=== PATIENT | female | born 1940 | race Caucasian/White ===

== ENCOUNTER 2023-12-04 04:34 | Day surgery (SDC) | payer BC, OTHER ==
[2023-11-27 15:22] VITALS: BMI 22.1
[2023-12-04 11:28] VITALS: TEMP 97.3
[2023-12-04 12:12] VITALS: BP 122/63; PULSE 63; RESP 15
== END 2023-12-04 12:30 | disposition home or self-care (01) ==
LOC: JASU-ENDO 04:34
PROVIDERS: ATTEND Internal Medicine Gastroenterology
PROC: 0DBK8ZX Excision of Ascending Colon, Via Natural or Artificial Opening Endoscopic, Diagnostic (ICD-10-PCS; 2023-12-04)
PROC: 0DBL8ZX Excision of Transverse Colon, Via Natural or Artificial Opening Endoscopic, Diagnostic (ICD-10-PCS; 2023-12-04)
PROC: 0DBP8ZX Excision of Rectum, Via Natural or Artificial Opening Endoscopic, Diagnostic (ICD-10-PCS; 2023-12-04)
PROC: 0DBM8ZX Excision of Descending Colon, Via Natural or Artificial Opening Endoscopic, Diagnostic (ICD-10-PCS; 2023-12-04)
PROC: 0DBH8ZX Excision of Cecum, Via Natural or Artificial Opening Endoscopic, Diagnostic (ICD-10-PCS; 2023-12-04)
PROC: 0DB98ZX Excision of Duodenum, Via Natural or Artificial Opening Endoscopic, Diagnostic (ICD-10-PCS; 2023-12-04)
PROC: 0DB68ZX Excision of Stomach, Via Natural or Artificial Opening Endoscopic, Diagnostic (ICD-10-PCS; 2023-12-04)
PROC: 0DBK8ZX Excision of Ascending Colon, Via Natural or Artificial Opening Endoscopic, Diagnostic (ICD-10-PCS; principal; 2023-12-04 11:00)
DX: Z12.11 Encounter for screening for malignant neoplasm of colon (principal); D12.2 Benign neoplasm of ascending colon; D12.8 Benign neoplasm of rectum; K63.5 Polyp of colon; K64.8 Other hemorrhoids; K57.30 Diverticulosis of large intestine without perforation or abscess without bleeding; K29.50 Unspecified chronic gastritis without bleeding
CPT/HCPCS: 88305-TC; 88342-TC

== ENCOUNTER 2023-12-16 15:52 | Emergency (ER) | payer BC, OTHER ==
[2023-12-16 15:59] VITALS: BP 136/60; PULSE 82; RESP 18; TEMP 98.2; BMI 22.1
== END 2023-12-16 18:26 | disposition home or self-care (01) ==
LOC: JERFT 15:52
DX: R05.1 Acute cough (principal); J06.9 Acute upper respiratory infection, unspecified; R09.81 Nasal congestion; Z20.822 Contact with and (suspected) exposure to COVID-19
CPT/HCPCS: 0241U-QW; 99283-25

== ENCOUNTER 2023-12-21 15:37 | Emergency (ER) | payer BC, OTHER ==
[2023-12-21 16:22] VITALS: BP 137/59; PULSE 96; RESP 18; TEMP 99.5; BMI 22.1
[2023-12-21 17:02] LABS: HEMATOCRIT 39.9 % (32.4-45.2); HEMOGLOBIN 13.2 G/dL (10.7-15.3); MCH 30.4 pg (25.7-33.7); MCHC 33.1 g/dl (32.0-36.0); MEAN CELL VOLUME 91.9 fl (80-96); MEAN PLT VOLUME 8.4 fl (7.5-11.1); PLATELET COUNT 248.4 10^3/uL (134-434); RBC 4.34 10^6/uL (3.60-5.2); RDW 13.4 % (11.6-15.6); WHITE BLOOD COUNT 10.9 10^3/uL (4.0-10.8)
[2023-12-21 17:16] LABS: INR 1.09 (0.83-1.09); PROTHROMBIN TIME (PATIENT) 12.4 SEC (9.7-13.0)
[2023-12-21 17:19] LABS: ACTIVATED PTT 30.8 SECONDS (25.2-36.5)
[2023-12-21 17:26] LABS: ALBUMIN 3.9 g/dl (3.4-5.0); BILIRUBIN,TOTAL 0.8 mg/dl (0.2-1); CALCIUM 8.8 mg/dl (8.5-10.1); CREATININE 0.6 mg/dl (0.6-1.3); POTASSIUM 4.5 mmol/L (3.5-5.1); TOT PROT 5.9 g/dl (6.4-8.2)
[2023-12-21 17:41] LABS: PLATELET ESTIMATE ADEQUATE
[2023-12-21] MEDS ORDERED: AMOX TR/POT CLAV 875MG/125MG TABLETS (FP) ONE (18:46)
[2023-12-21] MEDS ORDERED: DOXYCYCLINE HYCLATE 100 MG CAPSULE PO ONE (18:46)
[2023-12-21] MEDS: AMOX TR/POT CLAV 875MG/125MG TABLETS (FP) PO ONE (18:57)
[2023-12-21] MEDS: DOXYCYCLINE HYCLATE 100 MG CAPSULE PO ONE (18:57)
== END 2023-12-21 19:02 | disposition home or self-care (01) ==
LOC: FER 15:37
DX: R05.9 Cough, unspecified (principal); R06.02 Shortness of breath; J34.89 Other specified disorders of nose and nasal sinuses; J18.9 Pneumonia, unspecified organism; R93.89 Abnormal findings on diagnostic imaging of other specified body structures; Z20.822 Contact with and (suspected) exposure to COVID-19
CPT/HCPCS: 0241U-QW; 36415; 71046-TC-FY; 80053; 83880; 84484; 85027; 85610; 85730; 93005; 99285-25

== ENCOUNTER 2024-05-29 18:41 | Emergency (ER) | payer BC, OTHER ==
[2024-05-29 18:46] VITALS: BP 114/83; PULSE 78; RESP 18; TEMP 98.1; BMI 21.2
[2024-05-29] MEDS ORDERED: ACETAMINOPHEN 500 MG TABLET (FP) ONE (19:39)
[2024-05-29] MEDS: ACETAMINOPHEN 500 MG TABLET (FP) PO ONE (19:41)
== END 2024-05-29 20:35 | disposition home or self-care (01) ==
LOC: FER 18:41
DX: S63.91XA Sprain of unspecified part of right wrist and hand, initial encounter (principal); W10.8XXA Fall (on) (from) other stairs and steps, initial encounter
CPT/HCPCS: 73110-TC-RT-FY; 73130-TC-RT-FY; 99283-25